=== PATIENT | male | born 1965 | race Caucasian/White ===

== ENCOUNTER 2016-10-11 21:58 | Emergency (ER) | payer OTHER ==
--- NOTE | ~2016-10-11 | EKG ---
PATIENT: PETER ANTUNEZ UNIT #: [id number] Ventricular Rate: 59 BPM Atrial Rate: 59 BPM P-R Interval: 80 ms QRS Duration: 106 ms Q-T Interval: 430 ms QTC Calculation(Bezet): 425 ms Calculated R Russell: 58 degrees Calculated T Russell: 61 degrees Diagnosis Line: Sinus bradycardia with short [place] Diagnosis Line: RSR' or QR pattern in V1 suggests right Diagnosis Line: ventricular conduction delay Diagnosis Line: Diagnosis Line: Diagnosis Line: Abnormal ECG Diagnosis Line: No previous ECGs available Diagnosis Line: Confirmed by ELADIO CERVANTES MD ([id number]) on Diagnosis Line: 10/13/2016 12:04:15 PM INTERPRETING MD: BILLY PEREZ
[2016-10-11 22:13] LABS: POC - TROPONIN <0.05 ng/mL (<=0.05)
[2016-10-11 23:28] LABS: BASOPHIL% 0.3 % (0-2.5); EOSINOPHIL# 0.3 X10e3 (0-0.7); EOSINOPHIL% 2.3 % (0.0-7.0); HEMATOCRIT 46.4 % (38.0-50.0); HEMOGLOBIN 15.6 gm/dL (13.0-16.0); LYMPHOCYTE# 5.8 X10e3 (1.0-3.5); LYMPHOCYTE% 43.4 % (17.0-45.0); MEAN CELL VOLUME 94.2 FL (83-96); MEAN CORPUSCULAR HEMOGLOBIN 31.7 PG (28-34); MEAN CORPUSCULAR HGB CONC 33.7 g/dL (30-36); MEAN PLATELET VOLUME 8.7 FL (6.5-11.5); MONOCYTE# 1.5 X10e3 (0-1.0); MONOCYTE% 10.9 % (3.0-12.0); NEUTROPHIL# 5.8 X10e3 (1.5-7.1); NEUTROPHIL% 43.1 % (40-75); PLATELET COUNT 213 X10e3 (140-420); RED BLOOD COUNT 4.93 X10e (3.90-5.60); WHITE BLOOD COUNT 13.4 X10e3 (4.0-10.5)
[2016-10-11 23:30] LABS: DIFF IND NO; PROTHROMBIN TIME (PATIENT) 11.2 SECONDS (9.5-12.4)
[2016-10-11 23:37] LABS: PARTIAL THROMBOPLASTIN TIME 26.5 SECONDS (25.6-38.1)
[2016-10-11 23:38] LABS: ALBUMIN SERUM 3.9 g/dL (3.5-5.0); BILIRUBIN,TOTAL 0.2 mg/dL (0.2-2.0); CALCIUM SERUM 8.5 mg/dL (8.4-10.2); CREATININE SERUM 1.1 mg/dL (0.6-1.4); GLOM FILT RATE Estimated 78.4 mL/min (>60); PROTEIN TOTAL SERUM 7.5 g/dL (6.0-8.3)
== END 2016-10-11 22:30 ==
LOC: SED 21:58
PROVIDERS: Emergency Medicine
DX: I21.19 ST elevation (STEMI) myocardial infarction involving other coronary artery of inferior wall (principal); F17.200 Nicotine dependence, unspecified, uncomplicated
CPT/HCPCS: 36415; 80053; 82553; 84484; 85025; 85610; 85730; 93005; 99285; J1644